=== PATIENT | male | born 1955 | race Caucasian/White ===

== ENCOUNTER 2018-10-15 17:01 | Emergency (ER) | payer OTHER ==
[~2018-10-15] VITALS: Ht 177.8 cm; Wt 83.0 kg
[2018-10-15] MEDS ORDERED: NKM (17:09)
--- NOTE | 2018-10-15 17:10 | NUR ---
ED Nurse Note: pt takes hypertensive medication but could not recall the name or dosage.
--- NOTE | 2018-10-15 17:25 | NUR ---
ED Nurse Note: pt walked in c/o left elbow pain, pt reports he fell from a chair on his elbow earlier. cms intact, noted pt screaming. cap refill <3sec, pulses +2. will cont monitor. no obvious deformity nor contusion nor open wound at this time.
[2018-10-15] MEDS ORDERED: HYDROcodone/Acetamin 5/325 tab PO ONE (17:30)
[2018-10-15 18:01] VITALS: BP 164/104
--- NOTE | 2018-10-15 18:02 | Diagnostic Imaging Report ---
Indications:Left elbow pain Technique: Three or 4 views of the left elbow Comparison: None Findings: Evaluation is somewhat limited due to limited ability to position the patient. There is a comminuted impacted fracture of the radial head and neck. There may be subluxation/dislocation of the radial head is well, although this is difficult to evaluate there is a joint effusion. No other fractures are demonstrated Impression: Positive for radial head/neck fracture, possibly with subluxation or dislocation, positioning of the fragments not well evaluated due to limited ability to position the patient. This agrees with the preliminary interpretation provided overnight by [facility] teleradiology service.
[2018-10-15] MEDS ORDERED: IBUPROFEN600 MG ORAL (18:32)
[2018-10-15] MEDS ORDERED: NORCO 5-325 TA1 EACH ORAL (18:32)
--- NOTE | 2018-10-15 18:40 | NUR ---
ED Nurse Note: posterior splint applied by combination technician, pre post pulses present, cms intact.
[2018-10-15 18:50] VITALS: BP 158/76
--- NOTE | 2018-10-15 18:50 | NUR ---
ED Nurse Note: pt cleared to be d/c per ERMD, pt discharge and aftercare instruction provided w/ prescription, pt education done via discussion and handout, pt advised to follow up with systems specialist or return to ed if changes in condition, vss, ambulatory w/ steady gait, left w/ all belongings.
--- NOTE | 2018-10-15 19:18 | Emergency Room Report ---
History of Present Illness General Chief Complaint: Upper Extremity Injury Source: Patient Present Illness HPI 83-year-old male presents ED for evaluation. Patient walked in complaining of left elbow pain and swelling. States that he tripped and fell landing directly on his left elbow earlier today. Denies any other injuries. Pain is throbbing , 9 out of 10, nonradiating. Unable to bend. Denies any other injuries. No other aggravating relieving factors. Denies any other associated symptoms Allergies: Coded Allergies: No Known Allergies (Verified Allergy, Unknown, 01/27/07) Patient History Past Medical History: HTN Past Surgical History: none Pertinent Family History: none Social History: Denies: smoking, alcohol use, drug use Immunizations: UTD Reviewed Nursing Documentation: PMH: Agreed; PSxH: Agreed Nursing Documentation-PMH Past Medical History: No Stated History Hx Hypertension: Yes Review of Systems All Other Systems: negative except mentioned in HPI Physical Exam Vital Signs Date Time Temp Pulse Resp B/P (MAP) Pulse Ox O2 Delivery O2 Flow Rate FiO2 10/15/18 17:07 98.2 80 16 164/104 (124) 96 Room Air Sp02 EP Interpretation: reviewed, normal General Appearance: no apparent distress, alert, GCS 15, non-toxic Head: normocephalic Eyes: bilateral eye normal inspection, bilateral eye PERRL ENT: normal ENT inspection Neck: normal inspection Respiratory: normal inspection Cardiovascular #1: normal inspection Gastrointestinal: normal inspection Rectal: deferred Genitourinary: no CVA tenderness Musculoskeletal: decreased range of motion, swelling - L elbow Neurologic: alert, oriented x3, responsive, motor strength/tone normal, sensory intact, speech normal Psychiatric: normal inspection Skin: no rash Lymphatic: normal inspection Procedures Splinting Splinting : Consent: Verbal Splint: posterior long Pre-Proc Neuro Vasc Exam: normal Post-Proc Neuro Vasc Exam: normal Patient Tolerated: Well Complications: None Medical Decision Making Diagnostic Impression: Primary Impression: Elbow fracture Qualified Codes: S42.402A - Unspecified fracture of lower end of left humerus , initial encounter for closed fracture ER Course Hospital Course 63 yo M presents with L elbow pain s/p fall Differential diagnoses include: Fracture, dislocation, sprain, contusion Clinical course Patient placed on stretcher. After initial history and physical, I ordered pain medications and Xrays of L elbow xRay read shows acute comminuted fracture/dislocation of left radial head discussed with orthopedics Dr. Gomez; recommends long posterior splint along with immobilization and close orthopedic follow-up. Discussed findings with patient. He agrees with plan. Safe for discharge for close outpatient follow-up. I will provide referrals Diagnosis - elbow fx Stable and discharged to home with prescription for Motrin, [place]. weight bear as tolerated. Followup with ortho. Return to ED if symptoms recur or worsen Other X-Ray Diagnostic Results Other X-Ray Diagnostic Results : X-Ray ordered: L elbow # of Views/Limited Vs Complete: 3 View Indication: Pain EP Interpretation: Yes Interpretation: other - comminuted fx/dislocation of L radial head Impression: Other - fx Electronically Signed by: Electronically signed by Mariano Escobar MD Last Vital Signs Date Time Temp Pulse Resp B/P (MAP) Pulse Ox O2 Delivery O2 Flow Rate FiO2 10/15/18 18:50 97.5 86 18 158/76 98 Room Air Status: improved Disposition: HOME, SELF-CARE Condition: Stable Scripts Hydrocodone Bit/Acetaminophen 5-325* (NORCO 5-325*) 1 Each Tablet 1 TAB ORAL Q6H PRN for For Pain, #12 TAB 0 Refills Prov: Mariano Escobar MD 10/15/18 Ibuprofen* (MOTRIN*) 600 Mg Tablet 600 MG ORAL Q8H PRN for For Pain, #30 TAB 0 Refills Prov: Mariano Escobar MD 10/15/18 Referrals: Ant Garcia MD Patient Instructions: Radial Head Elbow Fracture With [facility] Mariano Escobar MD Oct 15, 2018 19:18
== END 2018-10-15 18:50 | disposition home or self-care (01) ==
LOC: EMR 18:16
DX: S42.402A Unspecified fracture of lower end of left humerus, initial encounter for closed fracture (principal); W01.0XXA Fall on same level from slipping, tripping and stumbling without subsequent striking against object, initial encounter; Y92.9 Unspecified place or not applicable; I10 Essential (primary) hypertension
CPT/HCPCS: 29105; 99283